=== PATIENT | female | born 1960 | race Caucasian/White ===

== ENCOUNTER 2017-07-29 22:56 | Emergency (ER) | payer OTHER ==
[~2017-07-29] VITALS: Ht 154.9 cm; Wt 88.9 kg
[~2017-07-29 22:56] MED LIST: ASPI81CT89 PO
[2017-07-29 23:00] VITALS: BP 142/82
--- NOTE | 2017-07-29 23:01 | NUR ---
Pt came EMS for body aches, chills, cough, n/v, x3 days. Pt denies vomiting episodes. Pt A&Ox4. Lung soudns clear thoughout, pt does have non-productive "bark-like" cough. pt states pain 5/10, and pain when coughing. VSS. ERMD aware. at bedside. Continue to monitor.
--- NOTE | 2017-07-29 23:02 | NUR ---
BARB LLAMAS. TAKEN TO BED 1
--- NOTE | 2017-07-30 00:13 | NUR ---
Pt in bed in POC with HOB elevated. at bedside. ERMD aware. Continue to monitor.
--- NOTE | 2017-07-30 01:20 | NUR ---
Pt in bed with eyes closed resting in poc. HOB elevated. ERMD aware. Continue to monitor.
[2017-07-30 01:58] VITALS: BP 142/82
--- NOTE | 2017-07-30 02:00 | NUR ---
Patient discharged with v/s stable. Written and verbal after care instructions given and explained. Patient alert, oriented and verbalized understanding of instructions. Ambulatory with steady gait. All questions addressed prior to discharge. ID band removed. Patient advised to follow up with PMD. Rx of Ibuprofen, Zofran, Codeine Phosphate/Guaifenesin given. Patient educated on indication of medication including possible reaction and side effects. Opportunity to ask questions provided and answered.
== END 2017-07-30 02:00 | disposition home or self-care (01) ==
LOC: MED 22:56
DX: K52.9 Noninfective gastroenteritis and colitis, unspecified (principal); J06.9 Acute upper respiratory infection, unspecified; Z88.1 Allergy status to other antibiotic agents; Z88.5 Allergy status to narcotic agent
CPT/HCPCS: 99283

== ENCOUNTER 2019-03-03 20:54 | Inpatient (IN) | payer OTHER ==
[~2019-03-03] VITALS: Ht 154.9 cm; Wt 74.8 kg
[2019-03-03 20:54] VITALS: BP 128/75
--- NOTE | 2019-03-03 20:55 | NUR ---
PT CLARISA ALS. TAKEN TO BED 5
--- NOTE | 2019-03-03 21:16 | NUR ---
58 Y/O FEMALE BIB PARAMEDICS FROM HOME. PT PRESENTS TO ED, C/O CHEST 01/03 DOES NOT RADIATE. PER REPORT FROM EXHIBIT SPECIALIST, PT HAD 2 EPISODES OF NAUSEA AND VOMITTING. PT DENIES ANY ACTION PROVOKING CHEST PAIN. EXHIBIT SPECIALIST STATES GIVING 1 DOSE ASPIRIN, 1 DOSE NITRO, AND ZOFRAN IV PUSH. PT HAS HX OF HTN AND STATES BEING NON MED COMPLIANT TO BP MEDS X 3 WEEKS. PT PLACED ON 2 L O2 NC FOR COMFORT MEASURES, 98% SP02. PT ON COAGULANT DIPPER. PT VSS. ERMD AWARE. WILL CONTINUE TO MONITOR.
--- NOTE | 2019-03-03 22:11 | NUR ---
X-Ray at bedside.
--- NOTE | 2019-03-03 22:21 | NUR ---
Dr. Chandler examining patient.
[2019-03-03 22:49] LABS: BASOPHILS # (AUTO) 0.1 K/uL (0.00-0.22); BASOPHILS % (AUTO) 1.4 % (0.0-2.0); EOSINOPHILS # (AUTO) 0.2 K/uL (0-0.4); HEMATOCRIT 36.6 % (36-48); HEMOGLOBIN 12.5 g/dL (12.0-16.0); LYMPHOCYTES # (AUTO) 2.2 K/uL (2.5-16.5); MEAN CORPUSCULAR HEMOGLOBIN 35 pg (27-31); MEAN CORPUSCULAR HGB CONC 34 g/dL (33-37); MEAN CORPUSCULAR VOLUME 102.1 fL (80-94); MONOCYTES # (AUTO) 0.5 K/uL (0.8-1.0); MONOCYTES % (AUTO) 10.3 % (1.7-9.3); NEUTROPHILS % (AUTO) 40.3 % (42.2-75.2); PLATELET COUNT (AUTO) 188 K/uL (140-450); RED BLOOD CELL COUNT(AUTO) 3.59 MIL/uL (4.20-5.40); RED CELL DISTRIBUTION WIDTH 12.9 % (11.6-13.7); WHITE BLOOD COUNT (AUTO) 4.9 K/uL (4.8-10.8)
[2019-03-03] MEDS ORDERED: ACET-2619 PO (22:52)
[2019-03-03 23:13] LABS: ANION GAP 15.4 (8-16); CARBON DIOXIDE 23.9 mmol/L (21-32); CREATININE 0.7 mg/dL (0.6-1.3); POTASSIUM 3.3 mmol/L (3.5-5.1)
[2019-03-03 23:17] LABS: ALBUMIN 3.1 g/dL (3.4-5.0); TOTAL BILIRUBIN 0.4 mg/dL (0.0-1.0)
[2019-03-04] MEDS ORDERED: ACETAMINOPHEN 650 MG SUPP RC PRN (00:05)
[2019-03-04] MEDS ORDERED: ACETAMINOPHEN 325 MG TAB PO PRN (00:05)
[2019-03-04] MEDS ORDERED: BISACODYL 10 MG SUPP RC PRN (00:05)
[2019-03-04] MEDS ORDERED: MORPHINE SULFATE 2 MG/ML SYR IVP PRN (00:05)
[2019-03-04] MEDS ORDERED: DOCUSATE SODIUM 250 MG GELCAP PO PRN (00:05)
[2019-03-04] MEDS ORDERED: POTASSIUM CHLORIDE 10 MEQ TABER PO PRN (00:05)
[2019-03-04] MEDS ORDERED: ZOLPIDEM 5 MG TAB PO PRN (00:05)
[2019-03-04] MEDS ORDERED: MAG SULF 2000 MG/WATER PREMIX 50 ML IV PRN (00:05)
[2019-03-04] MEDS ORDERED: POTASSIUM CHLORIDE 40 MEQ, LIDOCAINE 1% 25 MG in NACL 0.9% 250 ML IV PRN (00:05)
[2019-03-04] MEDS ORDERED: ONDANSETRON 4 MG/2 ML VIAL IVP PRN (00:05)
[2019-03-04] MEDS ORDERED: diphenhydrAMINE 50 MG/ML VIAL IVP PRN (00:05)
[2019-03-04] MEDS ORDERED: MAGNESIUM OXIDE 400 MG TAB PO PRN (00:05)
[2019-03-04] MEDS ORDERED: SODIUM PHOSPHATE 118 ML ENEM RC PRN (00:05)
[2019-03-04] MEDS ORDERED: HYDROcodone/APAP 5/325 MG 1 TAB TAB PO PRN ×2 (00:05)
[2019-03-04] MEDS ORDERED: ALBUTEROL 0.083% 2.5 MG/3 ML NEBU INH PRN (00:05)
[2019-03-04] MEDS ORDERED: ALUMINUM HYD/MAG/SIMETHICONE 30 ML UDC PO PRN (00:05)
[2019-03-04] MEDS ORDERED: guaiFENesin DM 200/20 MG-10 ML 10 ML UDC PO PRN (00:05)
[2019-03-04] MEDS ORDERED: cloNIDine 0.1 MG TAB PO PRN (00:05)
[2019-03-04] MEDS ORDERED: IPRATROPIUM 0.02% 0.5 MG/2.5 ML NEBU INH PRN (00:05)
[2019-03-04] MEDS ORDERED: LORazepam 2 MG/ML VIAL IVP PRN (00:05)
--- NOTE | 2019-03-04 00:45 | NUR ---
PT ADMITTED TO [facility] RM 111B. REPORT GIVEN TO EMELINA WILLETT. PT STABLE AT TRANSFER. PT CARE TRANSFERRED TO RECEIVING RN.
[2019-03-04 01:00] VITALS: BP 118/75
--- NOTE | 2019-03-04 01:00 | NUR ---
PT ADMITTED TO THE UNIT FROM ED. PATIENT IS AWAKE, ALERT AND ORIENTED. PT ABLE TO AMBULATE TO THE BED. PATIENT ON ROOM AIR. NO SOB OR S/S OF DISTRESS. PATIENT DENIES CHEST PAIN OR ANY DISCOMFORT AT THIS TIME. SCATTERED SCABS NOTED TO BLE. PATIENT PLACED ON TELE MONITORING. BED LOWERED WITH CALL LIGHT WITHIN REACH. WILL CONTINUE TO MONITOR
[2019-03-04 04:46] LABS: CHOL/HDL RATIO 1.9 (1-4.5)
[2019-03-04 05:11] VITALS: BP 123/74
--- NOTE | 2019-03-04 07:12 | NUR ---
PATIENT REPORT GIVEN AT BEDSIDE. PATIENT ENDORSED IN STABLE CONDITION
--- NOTE | 2019-03-04 07:15 | NUR ---
RECEIVED BEDSIDE REPORT FROM PAPER PATTERN INSPECTOR NURSE EMELINA. PT IS ASLEEP, BUT AROUSABLE, NO S/S OF ACUTE DISTRESS OR C/O PAIN. NO C/O CHEST PAIN OR SOB. PT IS ON ROOM AIR, SKIN IS INTACT. IV SITE IS ON THE R HAND 20 G, SALINE LOCKED. PT IS AMBULATORY AND NOT A FALL RISK. CALL LIGHT IS WITHIN REACH. WILL CONTINUE TO MONITOR.
[2019-03-04 08:00] VITALS: BP 123/67
--- NOTE | 2019-03-04 09:56 | NUR ---
PT VISITING WITH RELATIVE AT BEDSIDE. NO S/S OF ACUTE DISTRESS OT SOB. NO C/O CHEST PAIN. WILL CONTINUE TO MONITOR
--- NOTE | 2019-03-04 10:09 | NUR ---
GOT PHONE CALL FROM PHARMACY, PHARMACIST SAID THAT THERE ARE ORDERS FROM DR WILKINSON FOR MORPHINE AND NORCO, BUT PT IS ALLERGIC TO CODEINE. I ALERTED DR WILKINSON ABOUT THIS, HE SAID THAT THERE IS NO ASSOCIATION BETWEEN CODEINE AND THOSE TWO MEDICATIONS. PT HAS NOT BEEN C/O PAIN ANYWAY. Addendum: 03/04/19 at 1013 by Celia Han RN PHARMACIST AWARE
--- NOTE | 2019-03-04 10:14 | NUR ---
PT SEEN BY DR WILKINSON
--- NOTE | 2019-03-04 10:28 | NUR ---
PT TAKING A SHOWER
--- NOTE | 2019-03-04 11:40 | NUR ---
PT HAS DISCHARGED HOME. IV SITE AND WRIST BANDS REMOVED. PT WAS GIVEN DISCHARGE INSTRUCTIONS TO WHICH SHE VERBALIZED UNDERSTANDING. PT LEFT WITH ALL HER BELONGINGS IN STABLE CONDITION, WITH HER . PT WAS PROVIDED A BUS PASS.
--- NOTE | 2019-03-06 10:46 | NUR ---
CONTACTED PATIENT'S PCP DR LASHONDA CARDONA'S OFFICE AT [phone], ABLE TO SPEAK TO SYLVIA. SHE STATED THAT PATIENT HAS AN APPOINTMENT TODAY AT 1410 PM. CONTACTED PATIENT AT [phone] SO MANY TIMES, LINE IS BUSY. WILL FOLLOW UP.
== END 2019-03-04 11:40 | disposition home or self-care (01) | DRG 241 ==
LOC: MED 20:54 → MTU 23:53
PROVIDERS: ADMIT Internal Medicine Pulmonary Disease; ATTEND Internal Medicine Pulmonary Disease
DX: K29.00 Acute gastritis without bleeding (principal); E44.1 Mild protein-calorie malnutrition; E11.9 Type 2 diabetes mellitus without complications; E87.6 Hypokalemia; I10 Essential (primary) hypertension; Z88.5 Allergy status to narcotic agent; Z88.0 Allergy status to penicillin
CPT/HCPCS: 36415; 71045; 80053; 83880; 84484; 85025; 85610; 85730; 87081; 93005; 99285; Q0092

== ENCOUNTER 2019-03-11 19:28 | Emergency (ER) | payer OTHER ==
[~2019-03-11] VITALS: Ht 154.9 cm; Wt 68.0 kg
[~2019-03-11 19:28] MED LIST changes: +ACET-2619 PO; -ASPI81CT89 PO
[2019-03-11 19:41] VITALS: BP 135/78
[2019-03-11] MEDS ORDERED: KETOROLAC 60 MG/2 ML VIAL IM ONE (19:50)
[2019-03-11] MEDS ORDERED: MORPHINE SULFATE 4 MG/ML SYR IM ONE (20:50)
[2019-03-11 21:22] VITALS: BP 135/78
== END 2019-03-11 21:22 | disposition home or self-care (01) ==
LOC: MED 19:28
DX: M54.5 Low back pain (principal); I10 Essential (primary) hypertension; Z98.890 Other specified postprocedural states; Z79.899 Other long term (current) drug therapy; Z88.5 Allergy status to narcotic agent; Z88.0 Allergy status to penicillin
CPT/HCPCS: 81002; 96372; 99283; J1885; J2270

== ENCOUNTER 2019-12-16 20:45 | Observation (INO) | payer OTHER ==
[~2019-12-16] VITALS: Ht 154.9 cm; Wt 59.9 kg
[2019-12-16] MEDS ORDERED: NACL 0.9% 1,000 ML IV ONE ×2 (21:00→22:30)
--- NOTE | 2019-12-16 21:00 | NUR ---
BIBA TO BED 2
[2019-12-16 21:04] VITALS: BP 134/86
--- NOTE | 2019-12-16 21:08 | NUR ---
59F PRESENTS TO ED CLARISA SHELTON FROM [facility] IN [place] FOR STERNAL CHEST PAIN AFTER GETTING INTO A VERBAL ARGUMENT WITH SON. PT STATES PAIN IS NONRADIATING. DENIES SOB/COUGH. HEART SOUNDS EVEN AND REGULAR. RR EVEN AND UNLABORED. DENIES N/V/D. PMHX: HTN, DM, HLD. RX: DENIES ALLX: PCN, CODEINE NEGATIVE FOR COVID SCREENING WEARING MASK PLACED ON CARDIAC MONITORING
--- NOTE | 2019-12-16 21:08 | NUR ---
XR AT BEDSIDE
--- NOTE | 2019-12-16 21:18 | NUR ---
LABS DRAWN AND SENT TO LAB
[2019-12-16] MEDS ORDERED: KETOROLAC 30 MG/ML VIAL ONE (21:27)
--- NOTE | 2019-12-16 21:29 | NUR ---
PT MEDICATED WITH TORADOL IVP. TOLERATED WELL. NADR NS BOLUS INITIATED AT 5
[2019-12-16] MEDS ORDERED: KETOROLAC 30 MG/ML VIAL IVP ONE (21:30)
--- NOTE | 2019-12-16 21:30 | NUR ---
BED LOWEST AND LOCKED, RAILS X 2. PLACED FOR COMFORT WITH HOB ELEVATED
--- NOTE | 2019-12-16 21:30 | NUR ---
RECIVED REPORT FROM SAMEER GUPTA RN. CONTINUATION OF CARE.
[2019-12-16 21:32] LABS: APPEARANCE,URINE CLEAR (CLEAR); BASOPHILS # (AUTO) 0.1 K/uL (0.00-0.22); BASOPHILS % (AUTO) 1.5 % (0.0-2.0); BILIRUBIN,URINE NEGATIVE (NEGATIVE); BLOOD, URINE NEGATIVE (NEGATIVE); COLOR,URINE YELLOW (YELLOW); EOSINOPHILS # (AUTO) 0.1 K/uL (0-0.4); EOSINOPHILS % (AUTO) 1.7 % (0.0-4.0); HEMATOCRIT 36.9 % (36-48); HEMOGLOBIN 12.7 g/dL (12.0-16.0); LEUKOCYTE ESTERASE ,URINE NEGATIVE (NEGATIVE); LYMPHOCYTES # (AUTO) 2.2 K/uL (2.5-16.5); LYMPHOCYTES % (AUTO) 27.6 % (20.5-51.1); MEAN CORPUSCULAR HEMOGLOBIN 35 pg (27-31); MEAN CORPUSCULAR HGB CONC 35 g/dL (33-37); MEAN CORPUSCULAR VOLUME 102.5 fL (80-94); MONOCYTES # (AUTO) 0.9 K/uL (0.8-1.0); MONOCYTES % (AUTO) 11.5 % (1.7-9.3); NEUTROPHILS # (AUTO) 4.6 K/uL (1.8-7.7); NEUTROPHILS % (AUTO) 57.7 % (42.2-75.2); NITRITE, URINE NEGATIVE (NEGATIVE); PH,URINE 5.5 (5.0-9.0); PLATELET COUNT (AUTO) 170 K/uL (140-450); RED CELL DISTRIBUTION WIDTH 13.8 % (11.6-13.7); UGLUCOSE NEGATIVE (NEGATIVE)
[2019-12-16 21:45] LABS: BARBITURATE, URINE NEGATIVE ng/ml (NEG <=200); BENZODIAZEPINE, URINE NEGATIVE ng/mL (NEG <=200); CANNABINOID, URINE NEGATIVE ng/mL (NEG <=50); COCAINE, URINE NEGATIVE ng/mL (NEG <=300); OPIATE, URINE NEGATIVE ng/mL (NEG <=2000); PHENCYCLIDINE SCREEN,URINE NEGATIVE ng/mL (NEG <=25)
[2019-12-16 21:54] LABS: ALBUMIN 3.8 g/dL (3.4-5.0); ANION GAP 15.3 (8-16); CARBON DIOXIDE 25.2 mmol/L (21-32); CREATININE 0.8 mg/dL (0.6-1.3); POTASSIUM 3.5 mmol/L (3.5-5.1); TOTAL BILIRUBIN 0.7 mg/dL (0.0-1.0)
[2019-12-16] MEDS ORDERED: FAMOTIDINE 20 MG/2 ML VIAL IVP ONE (22:10)
--- NOTE | 2019-12-16 22:18 | NUR ---
PT AMBULATED TO RESTROOM WITH STEADY GAIT.
[2019-12-16] MEDS ORDERED: HYDR100T79 PO ×2 (22:20)
--- NOTE | 2019-12-16 22:25 | NUR ---
MED RECON AND PB FINISHED
--- NOTE | 2019-12-16 22:25 | NUR ---
MEDICATED WITH PEPCID IVP. TOLERATED WELL. LULÚ
--- NOTE | 2019-12-16 22:36 | NUR ---
2ND DOSE OF NS BOLUS INITIATED. TOLERATED WELL. NADR
[2019-12-16] MEDS ORDERED: ONDANSETRON 4 MG/2 ML VIAL IVP PRN (23:20)
[2019-12-16] MEDS ORDERED: MORPHINE SULFATE 4 MG/ML SYR IVP PRN (23:20)
[2019-12-16] MEDS ORDERED: HYDROcodone/APAP 5/325 MG 1 TAB TAB PO PRN (23:20)
[2019-12-16] MEDS ORDERED: ACETAMINOPHEN 325 MG TAB PO PRN (23:20)
--- NOTE | 2019-12-17 00:27 | NUR ---
PT AMBULATED TO RESTROOM WITH STEADY GAIT. PT DENIES FEELINGS OF DIZZYNESS.
--- NOTE | 2019-12-17 00:33 | NUR ---
PT AMBULATED FROM RESTROOM TO BED WITH STEADY GAIT. PT PLACED ON PETROLEUM PRODUCTION ENGINEER. VSS.
--- NOTE | 2019-12-17 00:40 | NUR ---
PT AMBULATED TO BED FROM RESTROOM WITH STEADY GAIT. PT PLACED ON CHAIR CAR ATTENDANT. BED LOCKED AND IN LOWEST POSITION.
--- NOTE | 2019-12-17 01:24 | NUR ---
PT RESPONSIVE TO VERBAL STIMULI. PT RESTING IN BED EYES CLOSED. RESPIRATIONS ARE EVEN AND UNLABORED. SKIN IS WARM AND DRY TO TOUCH. PT DENIES CHEST PAIN AT THIS TIME. PT CONTINUES ON LEATHER SPRAYER. BLANKET OFFERED FOR COMFORT. BED LOCKED AND IN LOWEST POSITION.
[2019-12-17] MEDS ORDERED: NACL 0.9% 1,000 ML IV ONE ×2 (03:20→06:15)
--- NOTE | 2019-12-17 03:22 | NUR ---
PT B/P 88/46. DR SOLITARIO CALLED AND HE GAVE NEW ORDER FOR 1L NS 0.9% BOLUS.
[2019-12-17] MEDS: NACL 0.9% 1,000 ML IV SCH ×2 (03:54→15:50)
--- NOTE | 2019-12-17 04:12 | NUR ---
PT B/P RECHECKED AND IS 100/57. PT ABLE TO WALK TO RESTROOM WITH STEADY GAIT.
--- NOTE | 2019-12-17 04:22 | NUR ---
PT RETURNED TO BED WITH STEADY GAIT.
--- NOTE | 2019-12-17 04:25 | NUR ---
MOVED TO ER BED 4
[2019-12-17] MEDS ORDERED: hydrALAZINE 25 MG TAB PO SCH (05:00)
--- NOTE | 2019-12-17 05:45 | NUR ---
MRSA SWAB IN NARES COLLECTED. PT TOLERATED WELL.
--- NOTE | 2019-12-17 06:05 | NUR ---
SPOKE WITH DR. SOLITARIO AND NOTIFIED HIM OF PT BP DECREASED TO: 90/45. GAVE NEW ORDER FOR ANOTHER BOLUS OF 0.9% NS 1L.
--- NOTE | 2019-12-17 07:00 | NUR ---
PT BP RECHECKED: 107/48.
--- NOTE | 2019-12-17 07:05 | NUR ---
GAVE NEW ORDER FOR MIDODRINE 10MG Q6H PO.
--- NOTE | 2019-12-17 07:07 | NUR ---
REPORT GIVEN SARAH. TRANSFER OF CARE.
--- NOTE | 2019-12-17 07:12 | NUR ---
RECEIVED REPORT FROM TAMIE RIVER. TRANSFER OF CARE AT THIS TIME
--- NOTE | 2019-12-17 07:26 | NUR ---
LAB AT BEDSIDE FOR BLOOD CULTURE COLLECTION
[2019-12-17 07:50] LABS: BASOPHILS # (AUTO) 0.1 K/uL (0.00-0.22); BASOPHILS % (AUTO) 1.6 % (0.0-2.0); EOSINOPHILS # (AUTO) 0.1 K/uL (0-0.4); EOSINOPHILS % (AUTO) 3.2 % (0.0-4.0); HEMATOCRIT 33.8 % (36-48); HEMOGLOBIN 11.4 g/dL (12.0-16.0); LYMPHOCYTES # (AUTO) 1.1 K/uL (2.5-16.5); LYMPHOCYTES % (AUTO) 24.4 % (20.5-51.1); MEAN CORPUSCULAR HEMOGLOBIN 35 pg (27-31); MEAN CORPUSCULAR HGB CONC 34 g/dL (33-37); MEAN CORPUSCULAR VOLUME 104.3 fL (80-94); MONOCYTES # (AUTO) 0.5 K/uL (0.8-1.0); MONOCYTES % (AUTO) 10.7 % (1.7-9.3); NEUTROPHILS # (AUTO) 2.6 K/uL (1.8-7.7); NEUTROPHILS % (AUTO) 60.1 % (42.2-75.2); PLATELET COUNT (AUTO) 158 K/uL (140-450); RED BLOOD CELL COUNT(AUTO) 3.24 MIL/uL (4.20-5.40); WHITE BLOOD COUNT (AUTO) 4.3 K/uL (4.8-10.8)
[2019-12-17 08:00] LABS: ANION GAP 10.8 (8-16); CREATININE 0.8 mg/dL (0.6-1.3); POTASSIUM 3.8 mmol/L (3.5-5.1)
--- NOTE | 2019-12-17 08:04 | NUR ---
PT SITTING UPRIGHT EATING BREAKFAST AT THIS TIME
--- NOTE | 2019-12-17 08:05 | NUR ---
SPOKE TO PTS DAUGHTER-- CALL FOR UPDATE. GONZALO-- [phone]
[2019-12-17] MEDS ORDERED: ASPIRIN 81 MG TAB.CHEW PO SCH (09:00)
--- NOTE | 2019-12-17 09:12 | NUR ---
PT AMBULATED TO RESTROOM WITH STEADY GAIT. DENIES DIZZINESS.
--- NOTE | 2019-12-17 09:28 | NUR ---
PATIENT HAS BEEN SCREENED AND CATEGORIZED MODERATE NUTRITION RISK. PATIENT WILL BE SEEN WITHIN 3-5 DAYS OF ADMISSION. 12/19/19 12/21/[address]
[2019-12-17 09:29] LABS: MAGNESIUM 1.7 mg/dL (1.8-2.4); PHOSPHORUS 2.8 mg/dL (2.5-4.9)
[2019-12-17 10:12] VITALS: BP 108/56
--- NOTE | 2019-12-17 10:19 | NUR ---
Patient will be admitted to care of DR SERRANO. Admited to TELE. Will go to room 125A. Belongings list completed. Report to TAMIE TIDWELL.
[2019-12-17 12:00] VITALS: BP 131/67
[2019-12-17] MEDS ORDERED: MIDODRINE 5 MG TAB PO SCH (12:00)
--- NOTE | 2019-12-17 13:53 | NUR ---
DISCHARGE PLANNING: THIS IS A 59 Y/O FEMALE PATIENT FROM HOME, WHO WAS BIBA DUE TO NON RADIATING SUBSTERNAL CHEST PAIN. PAST MEDICAL HISTORY INCLUDE DIABETES AND HTN. INITIAL DIAGNOSIS OF CHEST PAIN, ETOH INTOXICATION. CURRENT LABS INCLUDE WBC 4.3, H/H 11.4/33.8, NA/K 140/3.8, BUN/CREA 5/0.8. UDS SHOWED ALCOHOL LEVEL OF 352. NO CONSULTS AT THIS TIME, PENDING ATTENDING'S RECOMMENDATION. DC PLAN BACK TO HOME ONCE STABLE.
[2019-12-17] MEDS ORDERED: VITA1TAB44 PO (14:55)
[2019-12-17] MEDS ORDERED: VITB1I PO (14:55)
[2019-12-17 16:04] VITALS: BP 131/67
[2019-12-17] MEDS ORDERED: MAGNESIUM OXIDE 400 MG TAB PO SCH (21:00)
[2019-12-18] MEDS ORDERED: THIAMINE 100 MG TAB PO SCH (09:00)
[2019-12-18] MEDS ORDERED: ATORVASTATIN 20 MG TAB PO SCH (09:00)
[2019-12-18] MEDS ORDERED: FOLIC ACID 1 MG TAB PO SCH (09:00)
== END 2019-12-17 16:50 | disposition home or self-care (01) ==
LOC: MED 20:45 → MTU 23:18 → MMU 12-17 10:04
PROVIDERS: ADMIT Internal Medicine; ATTEND Internal Medicine
DX: R07.89 Other chest pain (principal); I95.9 Hypotension, unspecified; I10 Essential (primary) hypertension; E11.9 Type 2 diabetes mellitus without complications; E87.1 Hypo-osmolality and hyponatremia; R74.0 Nonspecific elevation of levels of transaminase and lactic acid dehydrogenase [LDH]; F10.129 Alcohol abuse with intoxication, unspecified; Z79.899 Other long term (current) drug therapy; Z88.0 Allergy status to penicillin; Z88.5 Allergy status to narcotic agent
CPT/HCPCS: 36415; 71045; 80048; 80053; 80305; 81003; 83605; 83735; 83880; 84100; 84484; 85025; 85379; 87040; 87081; 93005; 93307; 96361; 96374; 96375; 99285; G0378; G0482; J1885; J3490; Q0092